=== PATIENT | male | born 1985 | race Hispanic/Latino ===

== ENCOUNTER 2021-04-01 11:32 | Observation (INO) | payer BC ==
[2021-04-01 12:12] LABS: Absolute Lymphocytes (CBC) 2.1 K/uL (0.7-4.9); Basophils % 0.5 % (0-1.3); Hematocrit 49.8 % (39.6-49.0); Lymphocytes % 11.2 % (15.3-44.8); RBC Red Blood Cell Count 5.67 M/uL (4.33-5.43)
[2021-04-01 12:26] LABS: ALT/SGPT 54 U/L (12-78); AST/SGOT 15 U/L (15-37); Albumin 4.4 g/dL (3.4-5.0); Alkaline Phosphatase 66 U/L (45-117); BUN Blood Urea Nitrogen 5 mg/dL (7-18); Bicarbonate 26 mmol/L (21-32); Bilirubin Direct 0.3 mg/dL (0-0.2); Bilirubin Total 1.5 mg/dL (0.2-1.0); Glucose Level 113 mg/dL (74-106); Lipase 40 U/L (73-393); Potassium 3.4 mmol/L (3.5-5.1); Protein, Total 9.1 g/dL (6.4-8.2); Sodium Level 138 mmol/L (136-145)
[2021-04-01] MEDS ORDERED: MORPHINE 4 MG/ML SYR ONE (13:28)
[2021-04-01] MEDS ORDERED: ONDANSETRON 4 MG/2 ML VIAL ONE ×2 (13:28→20:19)
[2021-04-01] MEDS ORDERED: NA CHLORIDE 0.9% 100 ML ONE (13:37)
[2021-04-01] MEDS ORDERED: PIPERACIL/TAZO 3.375 GM VIAL IV ONE (13:37)
--- NOTE | 2021-04-01 15:11 | EDPHYS ---
Physician Documentation [facility] Name: Doc Colon Age: 35 yrs Sex: Male : 1985 Arrival Date: 04/01/2021 Time: 11:36 Bed 19 Private MD: ED Physician Carlton Maza HPI: 04/01 15:08 This 35 yrs old Male presents to ER via Ambulatory with complaints of jmm Abdominal Pain. 15:08 The patient presents with abdominal pain. Onset: The symptoms/episode began/occurred jmm gradually, 1 day(s) ago. The symptoms do not radiate. Associated signs and symptoms: Pertinent positives: decreased appetite. The symptoms are described as achy. Modifying factors: The symptoms are alleviated by nothing, the symptoms are aggravated by nothing. Historical: - Allergies: 11:45 No Known Allergies; ss - Home Meds: 11:45 None [Active]; ss - PMHx: 11:45 None; ss - PSHx: 11:45 None; ss - Immunization history:: Client reports having NOT received the Covid vaccine. - Social history:: Smoking status: Patient/guardian denies using tobacco, the patient reports quitting approximately 3 years ago. ROS: 15:08 Constitutional: Negative for fever, chills, and weight loss, Cardiovascular: Negative jmm for chest pain, palpitations, and edema, Respiratory: Negative for shortness of breath, cough, wheezing, and pleuritic chest pain. 15:08 Abdomen/GI: Positive for abdominal pain. 15:08 All other systems are negative. Exam: 15:08 Constitutional: This is a well developed, well nourished patient who is awake, alert, jmm and in no acute distress. Head/Face: atraumatic. Eyes: EOMI, no conjunctival erythema appreciated ENT: Moist Mucus Membranes Neck: Trachea midline, Supple Chest/axilla: Normal chest wall appearance and motion. Cardiovascular: Regular rate and rhythm. No edema appreciated Respiratory: Normal respirations, no respiratory distress appreciated 15:08 Back: Normal ROM Skin: General appearance color normal MS/ Extremity: Moves all extremities, no obvious deformities appreciated, no edema noted to the lower extremities Neuro: Awake and alert, normal gait Psych: Behavior is normal, Mood is normal, Patient is cooperative and pleasant 15:08 Abdomen/GI: Inspection: abdomen appears normal, Bowel sounds: normal, Palpation: soft, mild abdominal tenderness, in the right lower quadrant. Vital Signs: 11:43 Pulse 101; Resp 16; Temp 97.8(TE); Pulse Ox 99% on R/A; Weight 117.93 kg; Height 5 ft. ss 11 in. (180.34 cm); Pain 9/10; 11:45 BP 137 / 89; ss 12:04 BP 113 / 94; Pulse 108; Resp 18; Pulse Ox 100% on R/A; ap3 13:08 BP 120 / 74; Pulse 107; Pulse Ox 100% on R/A; Pain 6/10; ap3 14:45 BP 130 / 90; Pulse 99; Pulse Ox 100% on R/A; Pain 3/10; ap3 11:43 Body Mass Index 36.26 (117.93 kg, 180.34 cm) ss MDM: 11:54 Patient medically screened. [facility] 15:10 Data reviewed: vital signs, nurses notes. Counseling: I had a detailed discussion with [facility] the patient and/or guardian regarding: the historical points, exam findings, and any diagnostic results supporting the discharge/admit diagnosis, lab results, radiology results, the need for further work-up and treatment in the hospital. ED course: Dr. Dunham accepted admission. 04/01 11:56 Order name: Basic Metabolic Panel; Complete Time: 12:38 [facility] 04/01 11:56 Order name: CBC with Diff; Complete Time: 12:21 [facility] 04/01 11:56 Order name: Hepatic Function; Complete Time: 12:38 [facility] 04/01 11:56 Order name: Lipase; Complete Time: 12:38 [facility] 04/01 14:15 Order name: SARS-COV-2 RT PCR; Complete Time: 15:20 [facility] 04/01 15:14 Order name: Basic Metabolic Panel [facility] 04/01 15:14 Order name: Basic Metabolic Panel [facility] 04/01 15:14 Order name: Lipase [facility] 04/01 15:14 Order name: Lipase [facility] 04/01 15:14 Order name: Liver (Hepatic) Function [facility] 04/01 15:14 Order name: Liver (Hepatic) Function [facility] 04/01 15:14 Order name: CBC with Automated Diff [facility] 04/01 15:14 Order name: CBC with Automated Diff [facility] 04/01 11:56 Order name: IV Saline Lock; Complete Time: 12:02 [facility] 04/01 11:56 Order name: Labs collected and sent; Complete Time: 12:02 [facility] 04/01 11:56 Order name: CT Abd/Pelvis - IV Contrast Only [facility] 04/01 15:14 Order name: NPO EDMS Administered Medications: 13:08 Drug: morphine 4 mg Route: IVP; Site: left antecubital; ap3 14:12 Follow up: Response: No adverse reaction; Pain is decreased; RASS: Alert and Calm (0) ap3 13:08 Drug: Zofran (Ondansetron) 4 mg Route: IVP; Site: left antecubital; ap3 14:12 Follow up: Response: No adverse reaction ap3 14:12 Drug: Zosyn (piperacillin-tazobactam) 3.375 grams Route: IVPB; Infused Over: 60 mins; ap3 Site: left antecubital; 15:24 Follow up: Response: No adverse reaction; IV Status: Completed infusion es2 Disposition: 22:54 Co-signature as Attending Physician, Carlton Maza MD I agree with the assessment and kdr plan of care. Disposition Summary: 04/01/21 15:10 Hospitalization Ordered Hospitalization Status: Inpatient Admission [facility] Provider: Dejan Curry Location: Operating Room [facility] Condition: Stable [facility] Problem: new [facility] Symptoms: are unchanged [facility] Bed/Room Type: Standard [facility] Room Assignment: [facility] Diagnosis - Unspecified acute appendicitis [facility] Forms: - Medication Reconciliation Form [facility] - SBAR form [facility] Signatures: Dispatcher [employer] EDMS Carlton Maza MD MD kdr Mickail, Joel, PA PA [facility] Maricarmen Garcia RN RN ss Prokisch, Amanda, RN RN ap3 Faiza Cano RN es2 Corrections: (The following items were deleted from the chart) 14:15 13:25 CORONAVIRUS+MR.LAB.BRZ ordered. [facility] EDMS
--- NOTE | 2021-04-01 15:11 | ER ---
Nurse's Notes [facility] Name: Doc Colon Age: 35 yrs Sex: Male : 1985 Arrival Date: 04/01/2021 Time: 11:36 Bed 19 [facility] MD: Diagnosis: Unspecified acute appendicitis Presentation: 04/01 11:43 Chief complaint: Patient states: abd pain that began yesterday morning. Coronavirus ss screen: Client denies travel out of the [place] in the last 14 days. Ebola Screen: Patient denies exposure to infectious person. Patient denies travel to an Ebola-affected area in the 21 days before illness onset. Initial Sepsis Screen: Does the patient meet any 2 criteria? No. Patient's initial sepsis screen is negative. Does the patient have a suspected source of infection? No. Patient's initial sepsis screen is negative. Risk Assessment: Do you want to hurt yourself or someone else? Patient reports no desire to harm self or others. Onset of symptoms was March 31, 2021. 11:43 Acuity: YARITZA 3 ss 11:43 Method Of Arrival: Ambulatory ss Historical: - Allergies: 11:45 No Known Allergies; ss - Home Meds: 11:45 None [Active]; ss - PMHx: 11:45 None; ss - PSHx: 11:45 None; ss - Immunization history:: Client reports having NOT received the Covid vaccine. - Social history:: Smoking status: Patient/guardian denies using tobacco, the patient reports quitting approximately 3 years ago. Screenin:03 Abuse screen: Denies threats or abuse. Nutritional screening: No deficits noted. ap3 Tuberculosis screening: No symptoms or risk factors identified. Fall Risk No fall in past 12 months (0 pts). No secondary diagnosis (0 pts). IV access (20 points). Ambulatory Aid- None/Bed Rest/Nurse Assist (0 pts). Gait- Normal/Bed Rest/Wheelchair (0 pts) Mental Status- Oriented to own ability (0 pts). Total Bauer Fall Scale indicates No Risk (0-24 pts). Assessment: 12:02 General: Appears in no apparent distress. comfortable, Behavior is calm, cooperative, ap3 appropriate for age. Pain: Complains of pain in right lower quadrant Pain began gradually, 2-3 days ago. Neuro: Level of Consciousness is awake, alert, obeys commands, Oriented to person, place, time, situation, Appropriate for age Moves all extremities. Gait is steady, Speech is normal. Cardiovascular: Capillary refill < 3 seconds Patient's skin is warm and dry. Respiratory: Airway is patent Respiratory effort is even, unlabored, Respiratory pattern is regular, symmetrical. GI: Abdomen is round Bowel sounds present X 4 quads. Abd is soft X 4 quads Reports lower abdominal pain, nausea. 14:45 Reassessment: Patient and/or family updated on plan of care and expected duration. Pain ap3 level reassessed. Patient is alert, oriented x 3, equal unlabored respirations, skin warm/dry/pink. Vital Signs: 11:43 Pulse 101; Resp 16; Temp 97.8(TE); Pulse Ox 99% on R/A; Weight 117.93 kg; Height 5 ft. ss 11 in. (180.34 cm); Pain 9/10; 11:45 BP 137 / 89; ss 12:04 BP 113 / 94; Pulse 108; Resp 18; Pulse Ox 100% on R/A; ap3 13:08 BP 120 / 74; Pulse 107; Pulse Ox 100% on R/A; Pain 6/10; ap3 14:45 BP 130 / 90; Pulse 99; Pulse Ox 100% on R/A; Pain 3/10; ap3 11:43 Body Mass Index 36.26 (117.93 kg, 180.34 cm) ED Course: 11:36 Patient arrived in ED. as 11:37 Gustavo Liu PA is PHCP. [facility] 11:37 Carlton Maza MD is Attending Physician. [facility] 11:45 Triage completed. ss 11:45 Arm band placed on left wrist. ss 11:47 Doretha Stover, JENNIFER is Primary Nurse. ap3 12:04 Patient has correct armband on for positive identification. Bed in low position. Call ap3 light in reach. Side rails up X 1. Pulse ox on. NIBP on. Door closed. Noise minimized. 12:57 CT Abd/Pelvis - IV Contrast Only In Process Unspecified. EDMS 13:00 Patient moved back from CT. ap3 15:10 Dejan Curry MD is Hospitalizing Provider. [facility] 16:26 No provider procedures requiring assistance completed. Patient admitted, IV remains in ap3 place. Administered Medications: 13:08 Drug: morphine 4 mg Route: IVP; Site: left antecubital; ap3 14:12 Follow up: Response: No adverse reaction; Pain is decreased; RASS: Alert and Calm (0) ap3 13:08 Drug: Zofran (Ondansetron) 4 mg Route: IVP; Site: left antecubital; ap3 14:12 Follow up: Response: No adverse reaction ap3 14:12 Drug: Zosyn (piperacillin-tazobactam) 3.375 grams Route: IVPB; Infused Over: 60 mins; ap3 Site: left antecubital; 15:24 Follow up: Response: No adverse reaction; IV Status: Completed infusion es2 Outcome: 15:10 Decision to Hospitalize by Provider. sergo 16:26 Admitted to OR accompanied by nurse, via wheelchair, with chart. ap3 16:26 Condition: good 16:26 Instructed on the need for admit, Demonstrated understanding of instructions. 16:27 Patient left the ED. ap3 Signatures: Dispatcher [employer] EDMS Gustavo Liu PA PA Dhara Romeo Shelby, JENNIFER RN ss Doretha Stover RN RN ap3 Faiza Cano RN RN es2 Corrections: (The following items were deleted from the chart) 14:15 13:38 CORONAVIRUS+ drawn and sent. es2 EDMS
[2021-04-01] MEDS ORDERED: ACETAMINOPHEN 500 MG TAB PO PRN (15:13)
[2021-04-01] MEDS ORDERED: D5 0.45 NS 1,000 ML IV SCH (16:00)
[2021-04-01] MEDS ORDERED: Ringers Lactate 1,000 ML IV ONE ×2 (16:53→19:51)
--- NOTE | 2021-04-01 16:54 | RAD REPORT ---
EXAM DESCRIPTION: CTAbdomen Pelvis W Contrast - 04/01/2021 3:06 pm CLINICAL HISTORY: abdominal pain COMPARISON: No comparisons TECHNIQUE: CT of the abdomen and pelvis was performed. All CT scans are performed using dose optimization technique as appropriate and may include automated exposure control or mA/KV adjustment according to patient size. FINDINGS: Lower chest: No acute abnormality. Liver: No acute abnormality or suspicious lesions. Hepatic steatosis. Biliary: No biliary ductal dilatation. Stomach: No significant focal abnormality. Duodenum: No significant focal abnormality. Pancreas: No significant abnormality. Spleen: No significant abnormality. Adrenal: No suspicious lesions. Kidney/ureter: No hydronephrosis. No renal calculi. Retroperitoneum: No retroperitoneal adenopathy. Vascular: No aneurysm. Bowel: Acute non perforated appendicitis.. No bowel obstruction. No abscess. Peritoneum: No ascites or free air. Small fat containing umbilical hernia. Bladder: Grossly unremarkable. Reproductive: No adnexal masses. Bones: No acute fracture. Other: n/a IMPRESSION: Acute nonperforated appendicitis.
--- NOTE | 2021-04-01 18:25 | P.HP ---
Date of Service: 04/01/21 PC: This 35-year-old male presented to the emergency room with severe right lower quadrant abdominal pain for diagnosis and treatment. HPC: Patient had onset of abdominal pain last night. Pain gradually intensified throughout the evening. Early this morning it had localized to the right lower quadrant. At this point he found it difficult to walk, could barely stand straight up, and came to the ER. PSHx: Negative PMHx: Negative Social Hx: No known allergies Sys R: No cough, wheeze, shortness of breath. No chest pain or palpitations. Denies any urinary complaints. Good exercise tolerance. O/E: Awake alert vital signs are stable but patient is obviously uncomfortable HEENT: Within normal limits Chest: Chest movement equal bilaterally Abd: Tender with guarding and rebound in the right lower quadrant [place]: Intact Data: 19,000 white count, CT scan supports clinical diagnosis of acute abdomen with appendicitis Impression: Acute abdomen with appendicitis Plan: I will taken to the operating room for laparoscopic possible open appendectomy. The risks of this procedure have been discussed. The possibility of bleeding, infection, injury to bowel blood vessels and surrounding structures were outlined. The possible need for an open and/or further surgeries and procedures was discussed. He understands and wants us to proceed.
[2021-04-01] MEDS ORDERED: SUCCINYLCHOLINE 20 MG/ML (10 ML) IV ONE (18:51)
[2021-04-01] MEDS ORDERED: propofoL 200 MG/20 ML VIAL IV ONE (18:53)
[2021-04-01] MEDS ORDERED: MIDAZOLAM HCL 2 MG/2 ML INJ ONE (18:53)
[2021-04-01] MEDS ORDERED: FENTANYL CITR 100 MCG/2 ML ONE ×2 (18:53→19:35)
[2021-04-01] MEDS ORDERED: ROCURONIUM 50 MG/5 ML VIAL IV ONE (18:53)
--- NOTE | 2021-04-01 19:48 | P.OP ---
Preoperative diagnosis: Acute abdomen with appendicitis Postoperative diagnosis: The same Primary procedure: Laparoscopic appendectomy Anesthesia: General Estimated blood loss: 10 cc Specimen: Appendix Findings: Acutely inflamed appendix Operative Technique: The patient brought the operating room and placed supine on the table. After the induction of adequate general endotracheal anesthesia, a subumbilical incision was made. This was brought down through the skin and subcutaneous tissue. The abdomen was prepped with a DuraPrep solution, and he was draped in the usual aseptic manner. A subumbilical incision was made. This was brought out through the skin and subcutaneous tissue. The Visiport was now used to enter the peritoneal cavity and created pneumoperitoneum to approximately 12 mmHg. Under direct vision a 5 mm trocar was placed in the lower midline, and another in the right upper quadrant. We were able to visualize the right lower quadrant. The patient was also placed in reverse Trendelenburg and rolled to the left. An acutely inflamed appendix that was adherent to the right pelvic sidewall was noted. There was a marked amount of fibrinous exudate as well as inflammation in this area. There was some yellow fluid surrounding the appendix, but this was not consistent with a full rupture. The appendix was gently dissected off the lateral wall of the pelvis. It was mobilized up to the level of the cecum. Having identified the junction of the appendix with the cecum an opening was made into the window of the mesenteric blood supply to the appendix. We were now able to adequately assess the junction of the appendix with the cecum. The linear stapler was introduced at the umbilicus after converting the 10 to a 12 mm trocar. It was placed across the base of the appendix and fired in the usual manner. The appendix was now detached. Attention was turned towards the vasculature of the appendix. We were able to dissected out and keep it well away from any surrounding intestine. A grasper was placed across the base of this and gentle pressure was applied to remove a lot of the edema that was in the mesentery of the appendix itself. The linear stapler was now introduced juice into the peritoneal cavity, placed across the vasculature and fired. The appendix had now been detached. It was placed into an Endo Catch and brought out through the umbilical trocar site. Attention was turned back to his right lower quadrant. It was gently irrigated with a saline solution. The irrigating fluid was aspirated from the peritoneal cavity. Having ensured adequate hemostasis, the area was now allowed to revert back to its normal anatomical position. Attention was turned towards the umbilical trocar site. It was approximated using an Endo Close and an absorbable suture. At this point the pneumoperitoneum was collapsed, the trochars removed, and the umbilical suture tied. At the end of the procedure the patient was in a stable condition was sent to the recovery room. Needle sponge instrument count were correct. No drains were placed. Complications: None Transferred to: Recovery Room Condition: Good
[2021-04-01] MEDS ORDERED: NEOSTIGMINE 1 MG/ML -5 ML ONE (20:01)
[2021-04-01] MEDS ORDERED: GLYCOPYRROLATE 0.2 MG/ML SYR ONE (20:01)
[2021-04-01] MEDS ORDERED: HYDROCODONE/APAP 7.5/325 MG TAB PO PRN (20:05)
[2021-04-01] MEDS ORDERED: ONDANSETRON 4 MG/2 ML VIAL IV PRN (20:05)
[2021-04-01] MEDS ORDERED: MORPHINE 2 MG/ML SYR IV PRN (20:05)
[2021-04-01] MEDS: Ringers Lactate 1,000 ML IV SCH (21:00)
[2021-04-01 21:19] VITALS: BMI 36.2
[2021-04-02] MEDS: PIPER TAZO 3.375 GM in NA CHLORIDE 0.9% 100 ML IV SCH ×2 (00:27→09:00)
[2021-04-02] MEDS: Ringers Lactate 1,000 ML IV SCH (02:50)
[2021-04-02 05:56] LABS: Absolute Lymphocytes (CBC) 1.8 K/uL (0.7-4.9); Basophils % 0.8 % (0-1.3); Hematocrit 42.9 % (39.6-49.0); Lymphocytes % 15.2 % (15.3-44.8); MPV 8.9 fL (7.6-11.3); RBC Red Blood Cell Count 4.86 M/uL (4.33-5.43)
[2021-04-02 06:15] LABS: ALT/SGPT 37 U/L (12-78); AST/SGOT 10 U/L (15-37); Albumin 3.5 g/dL (3.4-5.0); Alkaline Phosphatase 49 U/L (45-117); BUN Blood Urea Nitrogen 7 mg/dL (7-18); Bicarbonate 29 mmol/L (21-32); Bilirubin Direct 0.3 mg/dL (0-0.2); Bilirubin Total 1.2 mg/dL (0.2-1.0); Glucose Level 107 mg/dL (74-106); Lipase 35 U/L (73-393); Potassium 3.8 mmol/L (3.5-5.1); Protein, Total 7.5 g/dL (6.4-8.2); Sodium Level 138 mmol/L (136-145)
[2021-04-02 08:48] VITALS: BP 118/70; TEMP 97.8
[2021-04-02] MEDS ORDERED: INFLUENZA VACCINE (for 6+ mo) 0.5 ML DOSE IMVAC ONE (09:00)
[2021-04-02 11:19] VITALS: O2SAT 95
== END 2021-04-02 11:30 | disposition home or self-care (01) ==
LOC: ER 11:32 → INTOOBSV 15:20 → ERHOLD 15:20 → OBSVTOIN 15:20 → 2ND 19:33
PROVIDERS: ADMIT Surgery; ATTEND Surgery
PROC: 0DTJ4ZZ Resection of Appendix, Percutaneous Endoscopic Approach (ICD-10-PCS; principal; 2021-04-01 18:00)
DX: K35.80 Unspecified acute appendicitis (principal); E66.9 Obesity, unspecified; Z68.36 Body mass index [BMI] 36.0-36.9, adult; Z87.891 Personal history of nicotine dependence; Z20.822 Contact with and (suspected) exposure to COVID-19
CPT/HCPCS: 44970; 96365; 85025 ×2; 80048 ×2; 36415; 80076 ×2; 88304; 83690 ×2; 74177; 94010 ×4; 96375; 99285; U0003; Q9967; J2704; J0330; J2543 ×2; J2250; J3010 ×2; J2270; J2710; J7120 ×3; J2405 ×2; G0378 ×3

== ENCOUNTER 2024-10-16 12:59 | Inpatient (IN) | payer BC, OTHER ==
[2024-10-16] MEDS ORDERED: FAMOTIDINE 20 MG/2 ML VIAL IV ONE (14:27)
[2024-10-16] MEDS ORDERED: NA CHLORIDE 0.9% 1,000 ML ONE (14:27)
[2024-10-16] MEDS ORDERED: KETOROLAC 30 MG/ML INJ ONE (14:27)
[2024-10-16] MEDS ORDERED: ONDANSETRON 4 MG/2 ML VIAL ONE (14:27)
[2024-10-16 14:34] LABS: Absolute Lymphocytes (CBC) 1.4 K/uL (0.7-4.9); Absolute Monocytes 1.1 K/uL (0.1-1.3); Absolute Neutrophil 11.3 K/uL (1.8-8.0); Basophils % 0.3 % (0-1.3); Eosinophils % 0.2 % (0-4.4); Hematocrit 43.2 % (39.6-49.0); Hemoglobin 14.8 g/dL (13.6-17.9); Lymphocytes % 9.8 % (15.3-44.8); MCH 30.1 pg (27.0-35.0); MCHC 34.3 g/dL (32.0-36.0); MCV 87.8 fL (80-100); MPV 8.4 fL (7.6-11.3); Monocytes % 8.3 % (3.3-12.3); Neutrophils % 81.4 % (41.7-73.7); Platelets 295 thou/uL (152-406); RBC Red Blood Cell Count 4.92 M/uL (4.33-5.43); Red Cell Distribution Width 13.4 % (12.1-15.2)
[2024-10-16 14:51] LABS: ALT/SGPT 33 U/L (16-61); Albumin 4.1 g/dL (3.4-5.0); Alkaline Phosphatase 66 U/L (45-117); Anion Gap 8.5 mEq/L (5.0-15.0); BUN Blood Urea Nitrogen 7 mg/dL (7-18); Bicarbonate 31 mEq/L (21-32); Bilirubin Total 0.9 mg/dL (0.2-1.0); Globulin 4.3 g/dL (2.3-3.5); Glomerular Filtration Rate 121 ml/min (=/>90); Glucose Level 116 mg/dL (74-106); Lipase 18 U/L (13-75); Potassium 3.5 mEq/L (3.5-5.1); Protein, Total 8.4 g/dL (6.4-8.2); Sodium Level 136 mEq/L (136-145)
[2024-10-16 14:52] LABS: AST/SGOT < 10 U/L (15-37)
--- NOTE | 2024-10-16 16:39 | RAD REPORT ---
EXAMINATION: US Abdomen Exam Limited CLINICAL HISTORY: [facility] MAIN Y ABD PAIN Bed: COMPARISON: None. TECHNIQUE: Limited upper abdominal grayscale and color flow sonographic images. FINDINGS: Gallbladder: Cholelithiasis. And sludge. Normal wall thickness. Positive sonographic Summers's sign. N o pericholecystic fluid. Bile ducts: No intrahepatic or extrahepatic biliary dilatation. Common bile duct measures 4 mm. Liver: Visualized portions of the liver demonstrate diffuse parenchymal echogenicity suggesting steat osis. Fluid: No ascites. IMPRESSION: Cholelithiasis with positive sonographic Summers sign, may suggest ongoing acute cholecystitis. Diffuse hepatic steatosis.
--- NOTE | 2024-10-16 16:49 | EDPHYS ---
Physician Documentation [facility] Name: Doc Colon Age: 39 yrs Sex: Male : 1985 Arrival Date: 10/16/2024 Time: 12:59 Bed 13 Private MD: ED Physician Davi Quinones HPI: 10/16 13:29 This 39 yrs old Male presents to ER via Ambulatory with complaints of kb Abdominal Pain. 13:29 Patient is a 39-year-old male who presents for upper abdominal pain that radiates to kb the back started yesterday. States this has been going on for 3 weeks, starting on Wednesday and resolving on Wednesday each time. Reports nausea and vomiting last weekend but not today. Denies fever, diarrhea. Reports alcohol consumption on the weekends, twice per week. Denies any medical history.. Historical: - Allergies: 13:09 No Known Allergies; ld1 - Home Meds: 13:09 None [Active]; ld1 - PMHx: 13:09 None; ld1 - PSHx: 13:09 None; ld1 - Immunization history:: Adult Immunizations up to date. - Infectious Disease History:: Denies. - Social history:: Smoking status: Patient denies any tobacco usage or history of. Patient/guardian denies using alcohol. ROS: 13:31 Constitutional: As per HPI kb Exam: 13:31 Constitutional: This is a well developed, well nourished patient who is awake, alert, kb and in no acute distress. Head/Face: Normocephalic, atraumatic. ENT: Moist Mucous membranes Cardiovascular: Regular rate Respiratory: Respirations even and unlabored. No increased work of breathing. Talking in full sentences Skin: Warm, dry with normal turgor. Normal color. MS/ Extremity: Pulses equal, no cyanosis. Neurovascular intact. Full, normal range of motion. Neuro: Awake and alert, GCS 15, oriented to person, place, time, and situation. 13:31 Abdomen/GI: Inspection: abdomen appears normal, Bowel sounds: normal, Palpation: soft, in all quadrants, mild abdominal tenderness, in the right lower quadrant and left lower quadrant, Vital Signs: 13:09 BP 147 / 98; Pulse 88; Resp 18; Temp 98.1(TE); Pulse Ox 99% on R/A; Weight 117.93 kg; ld1 Height 5 ft. 10 in. ; Pain 8/10; 15:55 BP 100 / 60; Pulse 80; Resp 18; Pulse Ox 100% on R/A; kj2 13:09 Body Mass Index 37.31 (117.93 kg, 177.8 cm) ld1 13:09 Pain Scale: Adult ld1 MDM: 13:01 Medical Screening Exam initiated kb 13:31 Differential diagnosis: cholecystitis, Cholelithiasis, gastritis, non-specific abd kb pain, pancreatitis. Data reviewed: vital signs, nurses notes. 16:43 Consideration of Admission/Observation Patient was admitted/placed on observation. kb Escalation of care including admission/observation considered. Management of patient was discussed with the following: Dietetic Intern: Dr Bynum accepts pt for consult. Counseling: I had a detailed discussion with the patient and/or guardian regarding the historical points, exam findings, and any diagnostic results supporting the discharge/admit diagnosis, lab results, radiology results, the need for further work-up and treatment in the hospital. 16:48 Management of patient was discussed with the following: Hospitalist: Hospitalist team, pt accepted under Dr Landin. 10/16 13:10 Order name: CBC with Diff; Complete Time: 14:52 kb 10/16 13:10 Order name: CMP; Complete Time: 14:54 kb 10/16 13:10 Order name: Lipase; Complete Time: 14:54 kb 10/17 05:17 Order name: CBC with Manual Differential; Complete Time: 11:36 EDMD 10/17 07:08 Order name: Comprehensive Metabolic Panel; Complete Time: 11:36 EDMD 10/17 07:08 Order name: Liver (Hepatic) Function; Complete Time: 11:36 EDMD 10/16 13:10 Order name: Abdomen Limited US; Complete Time: 16:41 kb 10/16 17:46 Order name: CONS Physician Consult EDMD 10/16 13:10 Order name: IV Saline Lock; Complete Time: 14:34 kb 10/16 13:10 Order name: Labs collected and sent; Complete Time: 14:34 kb 10/16 16:45 Order name: NPO; Complete Time: 16:47 kb Administered Medications: 14:34 Drug: Famotidine IVP 20 mg IVP once; dilute with 10 mL 0.9% NaCl; give over 2 minutes kj2 Route: IVP; Site: right antecubital; 23:41 Follow up: Response: No adverse reaction kj2 23:41 Follow up: Response: No adverse reaction kj2 14:34 Drug: TORadol - Ketorolac IVP 15 mg IVP once Route: IVP; Site: right antecubital; kj2 23:42 Follow up: Response: No adverse reaction kj2 14:34 Drug: Ondansetron IVP 4 mg IVP once; over 2 minutes Route: IVP; Site: right antecubital;kj2 23:42 Follow up: Response: No adverse reaction kj2 14:34 Drug: NS 0.9% IV 1000 ml IV at 1 bolus Per protocol; to be given as a bolus over 60 kj2 minutes Route: IV; Rate: 1 bolus; Site: right antecubital; 23:42 Follow up: IV Status: Completed infusion; IV Intake: 1000ml kj2 17:03 Drug: Piperacillin-Tazobactam IVPB 3.375 grams IVPB once over 60 mins; (mix in NS 100 kj2 mL) Route: IVPB; Infused Over: 60 mins; Site: right antecubital; 23:40 Follow up: IV Status: Completed infusion; IV Intake: 100ml kj2 17:03 Drug: fentaNYL (PF) IVP 25 mcg IVP once Route: IVP; Site: right antecubital; kj2 23:40 Follow up: Response: No adverse reaction kj2 Disposition: 17:54 I was immediately available on-site in the Emergency Department for consultation in the ms3 care of the patient. Disposition Summary: 10/16/24 16:48 Hospitalization Ordered Notes: Hospitalization Status: Observation kb Provider: Axel Landin Condition: Stable kb Problem: new kb Symptoms: are unchanged kb Bed/Room Type: Standard kb Location: Telemetry/MedSurg (observation)(10/17/24 10:56) bd Room Assignment: 220(10/17/24 10:56) bd Diagnosis - Acute cholecystitis kb Forms: - Medication Reconciliation Form kb - SBAR form kb - Leadership Thank You Letter kb Signatures: Dispatcher [employer] Milena Escamilla FNP-C FNP-Kristina Machuca Marcus, DO DO ms3 Mitra Quinones RN RN ld1 Jacquie Gay rv1 Taryn Toth, JENNIFER RN kj2 Corrections: (The following items were deleted from the chart) 13:11 13:11 CBC+H.LAB.BRZ ordered. EDMS EDMS 13:11 13:11 COMPREHENSIVE METABOLIC PANEL+C.LAB.BRZ ordered. EDMS EDMS 13:11 13:11 LIPASE+C.LAB.BRZ ordered. EDMS EDMS 13:11 13:11 Abdomen Limited+US.RAD.BRZ ordered. EDMS EDMS 21:04 16:48 Telemetry/MedSurg (observation) kb rv1 21:04 16:48 kb rv1 10/17 10:56 10/16 21:04 BR ER HOLD rv1 bd 10/17 10:56 10/16 21:04 ERHOLD- rv1 bd
--- NOTE | 2024-10-16 16:49 | ER ---
Nurse's Notes [facility] Name: Doc Colon Age: 39 yrs Sex: Male : 1985 Arrival Date: 10/16/2024 Time: 12:59 Bed 13 Private MD: Diagnosis: Acute cholecystitis Presentation: 10/16 13:09 Chief complaint: Patient states: Upper abdominal pain radiates to right side. ld1 Coronavirus screen: At this time, the client does not indicate any symptoms associated with coronavirus-19. Ebola Screen: No symptoms or risks identified at this time. Initial Sepsis Screen: Does the patient meet any 2 criteria? No. Patient's initial sepsis screen is negative. Does the patient have a suspected source of infection? No. Patient's initial sepsis screen is negative. Risk Assessment: Do you want to hurt yourself or someone else? Patient reports no desire to harm self or others. Onset of symptoms was October 16, 2024. 13:09 Method Of Arrival: Ambulatory ld1 13:09 Acuity: YARITZA 3 ld1 Triage Assessment: 13:09 General: Appears in no apparent distress. uncomfortable, Behavior is calm, cooperative, ld1 appropriate for age. Pain: Complains of pain in epigastric area Pain does not radiate. Pain currently is 8 out of 10 on a pain scale. Quality of pain is described as throbbing, Pain began suddenly, Is continuous. EENT: No signs and/or symptoms were reported regarding the EENT system. Neuro: Level of Consciousness is awake, alert, obeys commands, Oriented to person, place, time, situation. Cardiovascular: Capillary refill < 3 seconds Patient's skin is warm and dry. Respiratory: Airway is patent Respiratory effort is even, unlabored. GI: Abdomen is round non-distended, Reports upper abdominal pain. : No signs and/or symptoms were reported regarding the genitourinary system. Derm: No signs and/or symptoms reported regarding the dermatologic system. Musculoskeletal: No signs and/or symptoms reported regarding the musculoskeletal system. Historical: - Allergies: 13:09 No Known Allergies; ld1 - Home Meds: 13:09 None [Active]; ld1 - PMHx: 13: None; ld1 - PSHx: 13: None; ld1 - Immunization history:: Adult Immunizations up to date. - Infectious Disease History:: Denies. - Social history:: Smoking status: Patient denies any tobacco usage or history of. Patient/guardian denies using alcohol. Screenin:15 [facility] ED Fall Risk Assessment (Adult) History of falling in the last 3 months, kj2 including since admission No falls in past 3 months (0 pts) Confusion or Disorientation No (0 pts) Intoxicated or Sedated No (0 pts) Impaired Gait No (0 pts) Mobility Assist Device Used No (0 pt) Altered Elimination No (0 pt) Score/Fall Risk Level 0 - 2 = Low Risk Maintained a safe environment, Hourly rounding (assess needs \T\ fall precautionary measures) done. Abuse screen: Denies threats or abuse. Denies injuries from another. Nutritional screening: No deficits noted. Tuberculosis screening: No symptoms or risk factors identified. Assessment: 14:15 General: Appears in no apparent distress. Behavior is calm, cooperative. Pain: kj2 Complains of pain in abdomen and epigastric area Pain currently is 8 out of 10 on a pain scale. Neuro: Level of Consciousness is awake, alert, obeys commands, Oriented to person, place, time, situation. Cardiovascular: Patient's skin is warm and dry. Respiratory: Airway is patent Respiratory effort is unlabored. GI: Bowel sounds present X 4 quads. Abd is non tender. : No signs and/or symptoms were reported regarding the genitourinary system. 15:54 Reassessment: Patient appears in no apparent distress at this time. Patient and/or kj2 family updated on plan of care and expected duration. Pain level reassessed. Patient is alert, oriented x 3, equal unlabored respirations, skin warm/dry/pink. Vital Signs: 13:09 BP 147 / 98; Pulse 88; Resp 18; Temp 98.1(TE); Pulse Ox 99% on R/A; Weight 117.93 kg; ld1 Height 5 ft. 10 in. ; Pain 8/10; 15:55 BP 100 / 60; Pulse 80; Resp 18; Pulse Ox 100% on R/A; kj2 13:09 Body Mass Index 37.31 (117.93 kg, 177.8 cm) ld1 13:09 Pain Scale: Adult ld1 ED Course: 13:01 Patient arrived in ED. mr 13:01 [facility] kb 13:01 Davi Quinones DO is Attending Physician. kb 13:09 Triage completed. ld1 13:09 Arm band placed on right wrist. ld1 13:29 Abdomen Limited US In Process Unspecified. EDMS 13:50 Taryn Toth, JENNIFER is Primary Nurse. kj2 14:15 Patient has correct armband on for positive identification. Call light in reach. kj2 Provided Education on: call light. 14:15 Inserted saline lock: 20 gauge in right antecubital area, using aseptic technique. kj2 Blood collected. Flushed with 10 mL NS. 16:48 Axel Landin MD is Hospitalizing Provider. kb 10/17 00:00 No provider procedures requiring assistance completed. rg5 00:00 Patient admitted, IV remains in place. intact, No redness/swelling at site. rg5 00:17 Report given to JENN[address]ER Lane. kj2 Administered Medications: 10/16 14:34 Drug: Famotidine IVP 20 mg IVP once; dilute with 10 mL 0.9% NaCl; give over 2 minutes kj2 Route: IVP; Site: right antecubital; 23:41 Follow up: Response: No adverse reaction kj2 23:41 Follow up: Response: No adverse reaction kj2 14:34 Drug: TORadol - Ketorolac IVP 15 mg IVP once Route: IVP; Site: right antecubital; kj2 23:42 Follow up: Response: No adverse reaction kj2 14:34 Drug: Ondansetron IVP 4 mg IVP once; over 2 minutes Route: IVP; Site: right antecubital;kj2 23:42 Follow up: Response: No adverse reaction kj2 14:34 Drug: NS 0.9% IV 1000 ml IV at 1 bolus Per protocol; to be given as a bolus over 60 kj2 minutes Route: IV; Rate: 1 bolus; Site: right antecubital; 23:42 Follow up: IV Status: Completed infusion; IV Intake: 1000ml kj2 17:03 Drug: Piperacillin-Tazobactam IVPB 3.375 grams IVPB once over 60 mins; (mix in NS 100 kj2 mL) Route: IVPB; Infused Over: 60 mins; Site: right antecubital; 23:40 Follow up: IV Status: Completed infusion; IV Intake: 100ml kj2 17:03 Drug: fentaNYL (PF) IVP 25 mcg IVP once Route: IVP; Site: right antecubital; kj2 23:40 Follow up: Response: No adverse reaction kj2 Medication: 23:42 VIS not applicable for this client. kj2 Intake: 23:40 IV: 100ml; Total: 100ml. kj2 23:42 IV: 1000ml; Total: 1100ml. kj2 Outcome: 16:48 Decision to Hospitalize by Provider. kb 10/17 00:00 Admitted to ER Hold. Please see [facility] for further documentation. rg5 Condition: stable Instructed on the need for admit, 12:06 Patient left the ED. iw Signatures: Dispatcher [employer] EDMS Milena Burdick, SUSTAINABILITY ANALYST-C SUSTAINABILITY ANALYST-CkBridgett De La Paz, Reg Reg mr Salima Han, RN RN iw Mitra Quinones RN RN ld1 Domingo Alcaraz RN RN rg5 Taryn Toth RN RN kj2
[2024-10-16] MEDS ORDERED: FENTANYL CITR 100 MCG/2 ML ONE (16:53)
[2024-10-16] MEDS ORDERED: PIPERACIL/TAZO 3.375 GM VIAL IV ONE (16:56)
[2024-10-16] MEDS ORDERED: NA CHLORIDE 0.9% 100 ML ONE (16:56)
--- NOTE | 2024-10-16 17:25 | P.PN ---
This is an attestation to STRATEGY EXECUTION CONSULTANT note. Subjective: No chest pain or shortness of breath. Present with nausea, vomiting and abdominal pain. No obvious bleeding. Looks comfortable in the bed. Objective: General appearance: Alert and comfortable CVS: Normal S1 and S2 Lungs: Clear to auscultation bilaterally Abdomen: Soft, bowel sounds present, mild tenderness in the epigastric and right upper quadrant area. Extremities: No lower extremity edema 39-year-old patient with acute cholecystitis, ultrasound showed gallstones and fatty liver, WBC count elevated, start IV antibiotics, keep n.p.o., surgical consult requested.
[2024-10-16] MEDS: D5 0.45 NS 1,000 ML IV SCH ×2 (18:00→23:00)
--- NOTE | 2024-10-16 18:10 | P.HP ---
Certification for Inpatient Patient admitted to: Observation Patient will require the following post-hospital care: None Practitioner: I am a practitioner with admitting privileges, knowledge of patient current condition, hospital course, and medical plan of care. Services: Services provided to patient in accordance with Admission requirements found in Title 42 Section 412.3 of the Code of Federal Regulations Patient History Date of Service: 10/16/24 Reason for admission: Acute cholecystitis. History of Present Illness: Patient is a pleasant 39-year-old male with no significant past medical history except obesity, who presents to the ER today complaining of worsening diffuse abdominal pain, more prominent on the right upper quadrant associated with nausea but no vomiting. Patient states a week ago last Wednesday, he started having diffuse abdominal pain associated with nausea and vomiting, states the pain was intermittent, states the pain finally went away on Wednesday last week. Patient states last night around 9 PM, he started having diffused abdominal pain again which he describes as severe, aching, with associated nausea but no vomiting, states he had some shortness of breath during the pain episode, with no associated chest pain. Patient states the pain progressively worsened, but was able to go to work this morning, states he reported to ER due to the se verity of the pain, and states his friends also insisted for him to go to the ER for which he did. Patient states upon arrival to ER, his pain intensity was about 10/10, states the pain medication given in ER helped with his pain relief. On admission assessment, positive rebound tenderness, with no nausea or vomiting noted at this time. Patient ultrasound abdomen impression of cholelithiasis with positive sonographic Summers sign, may suggest ongoing acute cholecystitis. 2 diffuse hepatic steatosis. Surgical consult done with Sharan Mejia, called and spoke to him personally, requested patient be n.p.o. after midnight, LFTs in the morning and clear liquid diet tonight. Allergies No Known Allergies Allergy (Unverified 04/01/21 16:51) Home Medications: NK [No Home Meds] 04/01/21 - Past Medical/Surgical History Has patient received pneumonia vaccine in the past: No Diabetic: No Past Medical History: Patient denies medical history -: Morbid obesity -: Appendectomy - Family History Family History: Reviewed- Non-Contributory - Social History Alcohol use: No CD- Drugs: No Caffeine use: Yes Place of Residence: Home Review of Systems 10-point ROS is otherwise unremarkable General: Unremarkable Eyes: Unremarkable ENT: Unremarkable Respiratory: Unremarkable Cardiovascular: Unremarkable Gastrointestinal: Nausea, Abdominal Pain, As per HPI Genitourinary: Unremarkable Musculoskeletal: Unremarkable Integumentary: Unremarkable Neurological: Unremarkable Lymphatics: Unremarkable Physical Examination - Physical Exam General: Oriented x3, Cooperative HEENT: Atraumatic, Normocephalic, PERRLA, Mucous membr. moist/pink, Sclerae nonicteric Neck: Supple, 2+ carotid pulse no bruit, Without JVD or thyroid abnormality Respiratory: Clear to auscultation bilaterally, Normal air movement Cardiovascular: No edema, Normal pulses, Regular rate/rhythm, Normal S1 S2, No gallops, No rubs, No murmurs Gastrointestinal: Tenderness, Rebound, Guarding Musculoskeletal: No clubbing, No erythema, No tenderness Integumentary: No rashes, No breakdown, No significant lesion, No tenderness/swelling, No erythema, No cyanosis Neurological: Normal gait, Normal speech, Normal tone, Sensation intact, Cranial nerves 3-12 intact, Normal reflexes 2+, Normal affect Lymphatics: No axilla or inguinal lymphadenopathy External genitalia: No edema Rectal: Normal - Studies Laboratory Data (last 24 hrs) 10/16/24 10/16/24 14:10 14:10 WBC 13.80 H Hgb 14.8 Hct 43.2 Plt Count 295 Sodium 136 Potassium 3.5 BUN 7 Creatinine 0.69 L Glucose 116 H Total Bilirubin 0.9 AST < 10 L ALT 33 Alkaline Phosphatase 66 Lipase 18 Male Exam - Male Exam Scrotum: No lesions, No edema, Non-tender Testicular exam: Non-tender, Not swollen Prostate: Benign, Symmetric Penile exam: No discharge Anus & perineum: No lesion Assessment and Plan - Plan Assessment and plan. Patient is a pleasant 39-year-old male reports to ER complaining of worsening diffuse abdominal pain pain more prominent in the right upper quadrant with associated nausea but no vomiting, associated shortness of breath with abdominal pain. No associated chest pain. Patient states the pain started approximately 9 PM last night, and states it has progressively worsened which then prompted him to report to ER. Patient describes the pain as aching, constant with a pain scale of 10/10. Surgical consult has been done, spoke to the surgeon who requested the patient to be kept n.p.o. after midnight for surgery in a.m. (1) Acute cholecystitis. Patient had a CT of the abdomen and pelvis in ER, with impression of cholelithiasis with positive sonographic Summers sign, may suggest ongoing acute cholecystitis. Second, diffuse hepatic steatosis. -CREW SCHEDULER after midnight. -IV D5 1/2 at 75ml/ hr. -Zosyn 3.375 mg IV every 8 hours. -LFTs in a.m. as requested by surgeon. -Morphine 4 mg IV as needed every 4 hours. -Zofran 4 mg IV as needed every 4 hours. -Clear liquid diet for dinner as requested by surgeon. -Follow-up CMP and CBC in AM. (2)Explained entire treatment plan to the patient, solicit questions answered and voiced understanding. Discharge Plan: Home - Advance Directives Does patient have a Living Will: No Does patient have a Durable POA for Healthcare: No - Code Status/Comfort Care Code Status Assessed: Yes Code Status: Full Code Critical Care: No Time Spent Managing Pts Care (In Minutes): 55
[2024-10-16 20:14] VITALS: BMI 37.3
[2024-10-16] MEDS ORDERED: MORPHINE 4 MG/ML SYR ONE (21:45)
[2024-10-16] MEDS: MORPHINE 4 MG/ML SYR IV PRN (21:48)
[2024-10-16] MEDS ORDERED: D5 0.45 NS 1,000 ML IV ONE (23:27)
[2024-10-17] MEDS ORDERED: PIPERACIL/TAZO 3.375 GM VIAL IV ONE (00:56)
[2024-10-17] MEDS ORDERED: NA CHLORIDE 0.9% 100 ML ONE ×2 (00:56→10:27)
[2024-10-17] MEDS: PIPER TAZO 3.375 GM in NA CHLORIDE 0.9% 100 ML IV SCH (01:00)
[2024-10-17 05:15] LABS: Absolute Basophils 0.1 K/uL (0-0.5); Absolute Eosinophils 0.1 K/uL (0-0.5); Absolute Lymphocytes (CBC) 1.4 K/uL (0.7-4.9); Absolute Monocytes 1.1 K/uL (0.1-1.3); Absolute Neutrophil 8.1 K/uL (1.8-8.0); Basophils % 0.5 % (0-1.3); Eosinophils % 0.6 % (0-4.4); Hematocrit 42.4 % (39.6-49.0); Hemoglobin 14.6 g/dL (13.6-17.9); Lymphocytes % 13.1 % (15.3-44.8); MCH 30.2 pg (27.0-35.0); MCHC 34.5 g/dL (32.0-36.0); MCV 87.6 fL (80-100); MPV 8.2 fL (7.6-11.3); Monocytes % 10.3 % (3.3-12.3); Neutrophils % 75.5 % (41.7-73.7); Nucleated Red Blood Cells % 0.1 % (0-0); Platelets 272 thou/uL (152-406); RBC Red Blood Cell Count 4.84 M/uL (4.33-5.43); Red Cell Distribution Width 13.5 % (12.1-15.2)
[2024-10-17 06:22] LABS: Differential Total Cells Count 100; Segmented Neutrophils 73 % (40-80)
[2024-10-17 06:23] LABS: Blood Morphology Comment NOT SEEN (NOT SEEN); Lymphocytes 8 % (15-42); Monocytes 19 % (0-10); Platelet Estimate ADEQ
[2024-10-17 07:01] LABS: ALT/SGPT 26 U/L (16-61); Albumin 3.2 g/dL (3.4-5.0); Albumin/Globulin Ratio 0.8 (1.1-1.8); Alkaline Phosphatase 54 U/L (45-117); Anion Gap 7.8 mEq/L (5.0-15.0); BUN Blood Urea Nitrogen 7 mg/dL (7-18); Bicarbonate 30 mEq/L (21-32); Bilirubin Direct 0.2 mg/dL (0-0.2); Bilirubin Total 1.2 mg/dL (0.2-1.0); Glomerular Filtration Rate 119 ml/min (=/>90); Glucose Level 122 mg/dL (74-106); Potassium 3.8 mEq/L (3.5-5.1); Protein, Total 7.2 g/dL (6.4-8.2); Sodium Level 138 mEq/L (136-145)
[2024-10-17 07:08] LABS: AST/SGOT < 10 U/L (15-37)
[2024-10-17] MEDS ORDERED: ONDANSETRON 4 MG/2 ML VIAL ONE (07:08)
[2024-10-17] MEDS ORDERED: MORPHINE 4 MG/ML SYR ONE (07:08)
[2024-10-17] MEDS: ONDANSETRON 4 MG/2 ML VIAL IV PRN (07:20)
[2024-10-17] MEDS: FLU (Fluarix Triv) TS24-25(6MOS UP)/PF 45 MCG/0.5 ML Syringe IM ONE (07:45)
--- NOTE | 2024-10-17 08:56 | P.PN ---
Date of Service: 10/17/24 subjective Pain control as needed analgesia, n.p.o. for surgery scheduled for lap cholecystectomy Review of Systems 10 point review of system negative unless listed in HPI Physical Examination vital signs Review - Physical Exam General: Oriented x3, Cooperative, obese HEENT: Atraumatic, Normocephalic, PERRLA, Neck: Supple, Without JVD Respiratory: Clear to auscultation bilaterally, Normal air movement Cardiovascular: No edema, Normal pulses, Regular rate/rhythm, Gastrointestinal: + Tenderness, positive bowel Musculoskeletal: No clubbing, No erythema, Integumentary: No rashes, No breakdown, Neurological: Normal gait, Normal speech, Normal tone, Assessment and Plan 1. acute cholecystitis 2. hepatic steatosis Surgery to consult N.p.o. for surgery to IV fluids IV antibiotic Zosyn, as needed analgesics, CT Abdo impression of cholelithiasis with positive sonographic Summers sign, may suggest ongoing acute cholecystitis. Second, diffuse hepatic steatosis. Follow-up with GI after discharge CBC, BMP, Lipase normal Trend electrolytes replace Full code DVT SCDs Diet as per surgery Time with patient 32 minutes
--- NOTE | 2024-10-17 08:56 | P.DS ---
Admission Date: 10/16/24 Discharge Date: 10/17/24 Reason for Admission: Acute cholecystitis. Vital Signs/Physical Exam: Temp Pulse Resp BP Pulse Ox 98 F 75 18 105/69 100 10/17/24 03:25 10/17/24 03:25 10/17/24 07:20 10/17/24 03:25 10/17/24 07:20 Laboratory Data at Discharge: WBC 10.70 thou/uL (4.3-10.9) 10/17/24 05:03 Hgb 14.6 g/dL (13.6-17.9) 10/17/24 05:03 Hct 42.4 % (39.6-49.0) 10/17/24 05:03 Plt Count 272 thou/uL (152-406) 10/17/24 05:03 Sodium 138 mEq/L (136-145) 10/17/24 06:37 Potassium 3.8 mEq/L (3.5-5.1) 10/17/24 06:37 BUN 7 mg/dL (7-18) 10/17/24 06:37 Creatinine 0.74 mg/dL (0.70-1.30) 10/17/24 06:37 Glucose 122 mg/dL (74-106) H 10/17/24 06:37 Total Bilirubin 1.2 mg/dL (0.2-1.0) H 10/17/24 06:37 AST < 10 U/L (15-37) L 10/17/24 06:37 ALT 26 U/L (16-61) 10/17/24 06:37 Alkaline Phosphatase 54 U/L (45-117) 10/17/24 06:37 Lipase 18 U/L (13-75) 10/16/24 14:10 Home Medications: NK [No Home Meds] 04/01/21 Followup: NONE,NONE [Primary Care Provider] -
--- NOTE | 2024-10-17 13:37 | P.PN ---
This is an attestation to CATALOGUE MAKER note. Subjective: No chest pain or shortness of breath. Ongoing nausea and abdominal pain. No obvious bleeding. Looks comfortable in the bed. Objective: General appearance: Alert and comfortable CVS: Normal S1 and S2 Lungs: Clear to auscultation bilaterally Abdomen: Soft, bowel sounds present, mild tenderness in the right upper quadrant area. Extremities: No lower extremity edema 39-year-old patient with acute cholecystitis, ultrasound showed gallstones and fatty liver, WBC count better today, cont IV antibiotics, keep n.p.o., surgical consult requested.
[2024-10-17] MEDS: LIDOCAINE HCL/EPINEPHRINE 20 ML MDV ONE (15:30)
--- NOTE | 2024-10-17 20:33 | CON ---
Date of Consultation: 10/17/2024 Brief History Of Present Illness: The patient is a 39-year-old man who presents the ER with signific ant past medical history of obesity, who presents the ER with complaints of worsening diffuse abdomin al pain localized in the right upper quadrant associated with nausea, but no vomiting. It has been g oing on for approximately a week. He has had worsening episodes several weeks in fact with similar e pisodes, but they seem to be getting progressively worse over the course of weeks. He states almost consistently it occurs on the same day and as such, he came to the emergency room when his pain and e pisode continued to get worse. Past Medical History: Significant for morbid obesity. Past Surgical History: Appendectomy. Family History: Noncontributory. Social History: Drinks only beers on the weekend occasionally. Denies recreational drug use. No sm oking. Medications: No medications. Allergies: NO KNOWN DRUG ALLERGIES. Review of Systems: A 10-point review of systems other than HPI, denies. Physical Examination: General: At the time of examination, he is awake, alert, and oriented. Psychiatric: Appropriate and conversive. HEENT: Normocephalic. Sclerae icteric. Mucous membranes are moist. Oropharynx clear. Neck: Supple without JVD. Chest: Normal to expansion and excursion. Cardiovascular: Regular rate and rhythm. Pulmonary: Clear to auscultation bilaterally. Abdomen: Soft with positive right upper quadrant tenderness to palpation. Positive Summers sign. No focal peritonitis otherwise. Extremities: No clubbing, cyanosis, edema. Skin: Warm and dry. Laboratory Data: Reveals a white blood cell count of 13.8, hemoglobin is , hematocrit of 4 3.2, platelet count is 295, neutrophils are 81%. His sodium is 136, potassium 3.5, chloride 100, car bon dioxide is 31, BUN 7, creatinine 0.6, and glucose is 116. Total bilirubin 0.9, AST less than 10, ALT 33, alkaline phosphatase is 66. Lipase is 18. He had imaging performed, which included an ultr asound, which was officially read as cholelithiasis with positive sonographic Summers sign may suggest ongoing acute cholecystitis, diffuse hepatic steatosis. Assessment And Plan: This is a 39-year-old male who comes in with signs and symptoms of acute calcul ous cholecystitis. 1. IV fluid hydration. 2. Antibiotic coverage. 3. I explained risks, benefits, and alternatives of laparoscopic, possible open cholecystectomy with indocyanine green cholangiography and indicated procedures include, but not limited to bleeding, infe ction, injury to bile ducts, intestines, need for further operative procedures, blood clots, heart at tacks, strokes, other unforeseen complications. The patient displayed understanding of above-stated plan and agreed to proceed as indicated. DANG/LISANDRO Voice ID: [id number] Report ID: [id number]
[2024-10-18] MEDS: PIPERACIL/TAZO 3.375 GM VIAL IV ONE (08:00)
[2024-10-18] MEDS: Ringers Lactate 1,000 ML IV ONE (08:02)
[2024-10-18] MEDS ORDERED: MIDAZOLAM HCL 2 MG/2 ML INJ ONE (09:18)
[2024-10-18] MEDS ORDERED: FENTANYL CITR 100 MCG/2 ML ONE (09:31)
[2024-10-18] MEDS ORDERED: ONDANSETRON 4 MG/2 ML VIAL ONE (09:31)
[2024-10-18] MEDS ORDERED: propofoL 200 MG/20 ML VIAL IV ONE (09:31)
[2024-10-18] MEDS ORDERED: LIDOCAINE 1% MPF 5 ML VIAL ONE (09:31)
[2024-10-18] MEDS ORDERED: ROCURONIUM 50 MG/5 ML VIAL IV ONE (09:31)
[2024-10-18] MEDS ORDERED: KETOROLAC 30 MG/ML INJ ONE (09:50)
[2024-10-18 09:51] LABS: Absolute Basophils 0.1 K/uL (0-0.5); Absolute Eosinophils 0.1 K/uL (0-0.5); Absolute Lymphocytes (CBC) 1.5 K/uL (0.7-4.9); Absolute Neutrophil 7.8 K/uL (1.8-8.0); Basophils % 0.5 % (0-1.3); Hemoglobin 14.5 g/dL (13.6-17.9); Lymphocytes % 14.2 % (15.3-44.8); MCH 30.5 pg (27.0-35.0); MCHC 34.6 g/dL (32.0-36.0); MCV 88.2 fL (80-100); MPV 8.6 fL (7.6-11.3); Monocytes % 9.7 % (3.3-12.3); Neutrophils % 74.6 % (41.7-73.7); Platelets 281 thou/uL (152-406); RBC Red Blood Cell Count 4.76 M/uL (4.33-5.43); Red Cell Distribution Width 13.5 % (12.1-15.2)
[2024-10-18 10:01] LABS: Albumin 3.3 g/dL (3.4-5.0); Albumin/Globulin Ratio 0.7 (1.1-1.8); Anion Gap 8.4 mEq/L (5.0-15.0); Bilirubin Direct 0.3 mg/dL (0-0.2); Bilirubin Indirect, Calculated 0.7 mg/dL (0.2-0.8); Globulin 4.6 g/dL (2.3-3.5); Potassium 4.4 mEq/L (3.5-5.1); Protein, Total 7.9 g/dL (6.4-8.2)
[2024-10-18] MEDS: LIDOCAINE HCL/EPINEPHRINE 20 ML MDV ONE (10:10)
--- NOTE | 2024-10-18 11:15 | P.OP ---
Preoperative diagnosis: Cholecystitis with Cholelithiasis Postoperative diagnosis: Cholecystitis with Cholelithiasis Primary procedure: Laparoscopic Cholecystectomy with ICG Cholangiography Anesthesia: GETA + Local Estimated blood loss: <50cc Specimen: Gallbladder Findings: Distended Gallbladder, severe adhesions Complications: None Implants: Transferred to: Recovery Room Condition: Good
[2024-10-18 12:27] VITALS: O2SAT 94
--- NOTE | 2024-10-18 17:34 | P.PN ---
Subjective Date of Service: 10/18/24 Chief Complaint: Acute cholecystitis. Subjective: No chest pain or shortness of breath. No nausea. abdominal pain improving. No obvious bleeding. Looks comfortable in the bed. Objective: General appearance: Alert and comfortable CVS: Normal S1 and S2 Lungs: Clear to auscultation bilaterally Abdomen: Soft, expected post op tenderness Extremities: No lower extremity edema Physical Examination - Vital Signs Temperature: 98.3 F Blood Pressure: 131/78 Pulse: 88 Respirations: 16 Pulse Ox (%): 92 Assessment And Plan - Plan 39-year-old patient with acute cholecystitis, ultrasound showed gallstones and fatty liver, WBC count better today. 1. Acute cholecystitis: Patient had cholecystectomy today, continue IV antibiotics, diet as per surgical team. Leukocytosis improved. 2. Fatty liver: Follow-up with PCP. 3. Obesity with BMI of 37: Consider weight loss, follow-up with PCP. Plan discussed with the patient and family at bedside.
[2024-10-18] MEDS: HYDROCODONE/APAP 5/325 MG TAB PO PRN (20:33)
--- NOTE | 2024-10-18 21:24 | OP ---
Date of Procedure: 10/18/2024 Surgeon: Sharan Bynum MD, Preoperative Diagnosis: Cholecystitis with cholelithiasis. Postoperative Diagnosis: Cholecystitis with cholelithiasis. Procedure Performed: Laparoscopic cholecystectomy with indocyanine green cholangiography. Anesthesia: General endotracheal plus local with 1% lidocaine with epinephrine. Estimated Blood Loss: Approximately 50 cc. Specimen: Gallbladder. Findings: Distended gallbladder and severe adhesions overlying the gallbladder including from the po rtions of the transverse colon. There was a hydropic appearance to the Simba pouch of the gallbla dder as well. Umbilical hernia with omentum contained. Complications: None. Implants: Krzysztof hemostatic powder. Disposition: The patient transferred to recovery room in good condition. Procedure In Detail: After informed consent was obtained, patient was brought to the operating room, prepped and draped in the usual sterile fashion after adequate anesthesia achieved, anesthetizing th e area in the supraumbilical position down to subcutaneous tissues. A 5-mm 0-degree optical trocar w as introduced into the abdomen without incident or complication. Insufflation was obtained to 15 mmH g, at this time. There was no injury to vital structures upon entry into the abdomen. 3 additional trocars were placed, 1 in the epigastrium, 1 in the right upper quadrant, 1 in the right mid abdomen. All of these were 5 mm trocar, placed under direct vision without incident or complication. The um bilical trocar was then upsized to a 12 mm under direct vision without incident or complication. The patient was then positioned in the head up right-side up position. Ratcheted grasper was used to gr asp the patient's gallbladder. However, this was unsuccessful. At this point, due to the tense natu re of the gallbladder, as such, a decompression needle was brought on. The gallbladder was decompres sed at the fundus of the gallbladder with significant decompression of the gallbladder. However, it remained quite distended with stones. However, hydropic fluid was appreciated emanating from the fun dus of the gallbladder. At this point, after the gallbladder was adequately decompressed, the gallbl adder was grasped at the fundus, placed towards the patient's right shoulder and the patient remained in the right-side up head-up position. The dissection continued down to the Simba pouch of the g allbladder, removing adhesions off the anterior surface of the abdominal wall from the transverse col on and to the anterior surface of the gallbladder also from the omental attachments from the omentum to the gallbladder extending all the way down to the Simba pouch. After this was dissected free a nd the encased gallbladder was visualized, I performed indocyanine green cholangiography. The anatom y was displayed at this point still showing the cystic duct and common duct junction. At this point, I used electrocautery to dissect out 2 structures identified as both cystic duct and cystic artery. These structures were encircled, skeletonized, and identified, and a critical view of safety was obt ained, at this point, seeing the liver in the posterior window, at this point. After these structure s were skeletonized, double titanium clips were placed doubly and proximally and singly on the distal side of both cystic duct and cystic artery. I then performed indocyanine green cholangiography conf irming that the clips were in good anatomic position quite away from the transection site from the co mmon duct. At this point, the transection was completed using Endo Ash. At this point, the gallb ladder was removed from the hepatic fossa with significant need for fulguration in the hepatic bed. There was a thick inflammatory rind in this area and significant inflammatory changes with hydropic a ppearance of this area. After the gallbladder was removed and placed in EndoCatch bag and removed th rough the umbilical trocar site, sent off for pathologic examination. The abdomen was then copiously irrigated multiple times and suctioned out to be clear. Hemostasis was required on the midportion o f the gallbladder fossa and it was fulgurated appropriately until hemostasis was achieved. The area was desufflated, inspected once again. No additional hemostatic measures were required. The area wa s copiously irrigated multiple times, suctioned out completely. Clips were found to be in good anato naomie position, at this point. I inspected the area. There was no additional hemostatic maneuvers porfirio t was required. I did spread Krzysztof hemostatic powder into the hepatic fossa and just prior to this checked indocyanine green cholangiography to see if there is any leakage of bowel, which none was luba reciated, at this point. After the Krzysztof was sprayed, the patient was positioned back in neutral po sition. Any effluent was suctioned out. I then closed the 12 mm trocar site using a Anup-Elvira suture passer with a #1 Vicryl in an interrupted fashion with good approximation of tissues. The ab domen was then desufflated under direct visualization without incident or complication. Remainder of trocars were removed. All skin incisions were then copiously irrigated and closed with a 4-0 Monocr yl in a running fashion and Dermabond was placed on top. The patient tolerated procedure without inc ident or complication, and transferred to PACU in good condition. All counts were correct at the end of the case. DANG/LISANDRO Voice ID: [id number] Report ID: [id number]
[2024-10-19 07:56] LABS: Absolute Basophils 0.1 K/uL (0-0.5); Absolute Eosinophils 0.1 K/uL (0-0.5); Absolute Monocytes 1.8 K/uL (0.1-1.3); Absolute Neutrophil 14.5 K/uL (1.8-8.0); Basophils % 0.4 % (0-1.3); Eosinophils % 0.3 % (0-4.4); Hematocrit 43.1 % (39.6-49.0); Hemoglobin 14.7 g/dL (13.6-17.9); Lymphocytes % 5.9 % (15.3-44.8); MCH 30.3 pg (27.0-35.0); MCHC 34.1 g/dL (32.0-36.0); MCV 88.9 fL (80-100); MPV 8.4 fL (7.6-11.3); Monocytes % 10.3 % (3.3-12.3); Neutrophils % 83.1 % (41.7-73.7); Platelets 321 thou/uL (152-406); RBC Red Blood Cell Count 4.85 M/uL (4.33-5.43); Red Cell Distribution Width 13.3 % (12.1-15.2)
[2024-10-19] MEDS: PIPERACIL/TAZO 3.375 GM VIAL IV ONE (08:00)
[2024-10-19 08:12] LABS: Albumin 3.4 g/dL (3.4-5.0); Albumin/Globulin Ratio 0.7 (1.1-1.8); Anion Gap 6.9 mEq/L (5.0-15.0); Bilirubin Direct 0.4 mg/dL (0-0.2); Bilirubin Indirect, Calculated 0.9 mg/dL (0.2-0.8); Bilirubin Total 1.3 mg/dL (0.2-1.0); Globulin 5.1 g/dL (2.3-3.5); Potassium 3.9 mEq/L (3.5-5.1); Protein, Total 8.5 g/dL (6.4-8.2)
--- NOTE | 2024-10-19 15:25 | P.PN ---
Subjective Date of Service: 10/19/24 Chief Complaint: Acute cholecystitis. Subjective: No chest pain or shortness of breath. No nausea. abdominal pain improving. No obvious bleeding. Looks comfortable in the bed. Tolerating diet well so far. Objective: General appearance: Alert and comfortable CVS: Normal S1 and S2 Lungs: Clear to auscultation bilaterally Abdomen: Soft, expected post op tenderness Extremities: No lower extremity edema Physical Examination - Vital Signs Temperature: 98.8 F Blood Pressure: 120/70 Pulse: 95 Respirations: 12 Pulse Ox (%): 91 Assessment And Plan - Plan 39-year-old patient with acute cholecystitis, ultrasound showed gallstones and fatty liver 1. Acute cholecystitis: Patient had cholecystectomy 10/18 -continue IV antibiotics, advance diet -Leukocytosis worse today, had a temperature spike last night, follow-up on cultures 2. Fatty liver: Follow-up with PCP. 3. Obesity with BMI of 37: Consider weight loss, follow-up with PCP. Plan discussed with the patient and family at bedside. DC home tomorrow if white count better, cultures negative. Discussed with surgical team.
[2024-10-20 07:47] LABS: Absolute Basophils 0.1 K/uL (0-0.5); Absolute Eosinophils 0.1 K/uL (0-0.5); Absolute Monocytes 1.2 K/uL (0.1-1.3); Absolute Neutrophil 12.4 K/uL (1.8-8.0); Basophils % 0.3 % (0-1.3); Eosinophils % 0.3 % (0-4.4); Hematocrit 41.4 % (39.6-49.0); Hemoglobin 14.2 g/dL (13.6-17.9); Lymphocytes % 6.8 % (15.3-44.8); MCH 30.3 pg (27.0-35.0); MCHC 34.3 g/dL (32.0-36.0); MCV 88.1 fL (80-100); MPV 7.9 fL (7.6-11.3); Monocytes % 8.2 % (3.3-12.3); Neutrophils % 84.4 % (41.7-73.7); Nucleated Red Blood Cells % 0.1 % (0-0); Platelets 300 thou/uL (152-406); Red Cell Distribution Width 13.5 % (12.1-15.2)
[2024-10-20 08:06] LABS: Albumin/Globulin Ratio 0.6 (1.1-1.8); Anion Gap 10.3 mEq/L (5.0-15.0); Bilirubin Direct 0.5 mg/dL (0-0.2); Bilirubin Indirect, Calculated 0.9 mg/dL (0.2-0.8); Bilirubin Total 1.4 mg/dL (0.2-1.0); Globulin 5.1 g/dL (2.3-3.5); Potassium 3.3 mEq/L (3.5-5.1); Protein, Total 8.1 g/dL (6.4-8.2)
[2024-10-20 08:47] VITALS: BP 135/86; TEMP 97.3
[2024-10-20] MEDS: POTASSIUM CL SA 10 MEQ TAB PO ONE (09:50)
[2024-10-20] MEDS: NA CHLORIDE 0.9% 1,000 ML IV SCH (12:38)
--- NOTE | 2024-10-20 18:08 | P.DS ---
Admission Date: 10/17/24 Discharge Date: 10/20/24 Disposition: ROUTINE DISCHARGE Discharge Condition: GOOD Reason for Admission: Acute cholecystitis. - Problems (1) Cholecystitis Current Visit: Yes Status: Acute Hospital Course: Patient is a pleasant 39-year-old male with no significant past medical history except obesity, who presents to the ER today complaining of worsening diffuse abdominal pain, more prominent on the right upper quadrant associated with nausea but no vomiting. Patient states a week ago last Wednesday, he started having diffuse abdominal pain associated with nausea and vomiting, states the pain was intermittent, states the pain finally went away on Wednesday last week. Patient states last night around 9 PM, he started having diffused abdominal pain again which he describes as severe, aching, with associated nausea but no vomiting, states he had some shortness of breath during the pain episode, with no associated chest pain. Patient states the pain progressively worsened, but was able to go to work this morning, states he reported to ER due to the severity of the pain, and states his friends also insisted for him to go to the ER for which he did. Patient states upon arrival to ER, his pain intensity was about 10/10, states the pain medication given in ER helped with his pain relief. On admission assessment, positive rebound tenderness, with no nausea or vomiting noted at this time. Patient ultrasound abdomen impression of cholelithiasis with positive sonographic Summers sign, may suggest ongoing acute cholecystitis. 2 diffuse hepatic steatosis. Surgical consult done with Sharan Mejia, called and spoke to him personally, requested patient be n.p.o. after midnight, LFTs in the morning and clear liquid diet tonight. 39-year-old patient with acute cholecystitis, ultrasound showed gallstones and fatty liver 1. Acute cholecystitis: Patient had cholecystectomy 10/18 -continued IV antibiotics, advanced diet -Leukocytosis worse today, had a temperature spike last night, follow-up on cultures negative dc with oral augmentin, prn mobic , and zofrab 2. Fatty liver: Follow-up with PCP. surgery followup Vital Signs/Physical Exam: Temp Pulse Resp BP Pulse Ox 97.3 F 90 17 135/86 96 10/20/24 08:00 10/20/24 08:00 10/20/24 16:50 10/20/24 08:00 10/20/24 16:50 General: Oriented x3 HEENT: Atraumatic, Normocephalic Respiratory: Clear to auscultation bilaterally Cardiovascular: Normal pulses Gastrointestinal: Normal bowel sounds Laboratory Data at Discharge: WBC 14.70 thou/uL (4.3-10.9) H 10/20/24 07:39 Hgb 14.2 g/dL (13.6-17.9) 10/20/24 07:39 Hct 41.4 % (39.6-49.0) 10/20/24 07:39 Plt Count 300 thou/uL (152-406) 10/20/24 07:39 Sodium 134 mEq/L (136-145) L 10/20/24 07:39 Potassium 3.3 mEq/L (3.5-5.1) L D 10/20/24 07:39 BUN 5 mg/dL (7-18) L 10/20/24 07:39 Creatinine 0.62 mg/dL (0.70-1.30) L 10/20/24 07:39 Glucose 114 mg/dL (74-106) H 10/20/24 07:39 Total Bilirubin 1.4 mg/dL (0.2-1.0) H 10/20/24 07:39 AST 25 U/L (15-37) 10/20/24 07:39 ALT 49 U/L (16-61) 10/20/24 07:39 Alkaline Phosphatase 73 U/L (45-117) 10/20/24 07:39 Lipase 13 U/L (13-75) 10/20/24 07:39 Home Medications: Meloxicam [Mobic] 15 mg PO DAILY #30 10/20/24 Ondansetron [Zofran] 4 mg PO Q6H PRN #30 tab 10/20/24 New Medications: Meloxicam [Mobic] 15 mg PO DAILY #30 Ondansetron [Zofran] 4 mg PO Q6H PRN #30 tab PRN Reason: Nausea / Vomiting Diet: Regular Activity: No lifting more than 10 lbs Followup: Shaarn Bynum MD [ACTIVE - CAN ADMIT] - 1-2 Weeks NONE,NONE [Primary Care Provider] - If your Condition Changes
== END 2024-10-20 20:10 | disposition home or self-care (01) | DRG 419 ==
LOC: ER 12:59 → ERHOLD 17:39 → 2ND 10-17 11:18 → OBSVTOIN 10-17 18:12
PROVIDERS: ADMIT Hospitalist; ATTEND Internal Medicine
PROC: BF52200 Other Imaging of Gallbladder using Fluorescing Agent, Indocyanine Green Dye, Intraoperative (ICD-10-PCS; 2024-10-18)
PROC: 0FT44ZZ Resection of Gallbladder, Percutaneous Endoscopic Approach (ICD-10-PCS; principal; 2024-10-18 09:30)
DX: K80.00 Calculus of gallbladder with acute cholecystitis without obstruction (principal); K76.0 Fatty (change of) liver, not elsewhere classified; E66.01 Morbid (severe) obesity due to excess calories; Z68.37 Body mass index [BMI] 37.0-37.9, adult
CPT/HCPCS: 36415; 76705; 80048; 80053; 80076; 83690; 85025; 87040; 88304; 96361; 96365; 96366; 96375; 99285; G0378; J2003; J2250; J2405; J2543; J2704; J3010; J7030; J7120; J7799